=== PATIENT | male | born 1935 | race Caucasian/White ===

== ENCOUNTER 2017-04-18 16:21 | Inpatient (IN) | payer MEDICARE, OTHER ==
[~2017-04-18] VITALS: Ht 182.9 cm; Wt 60.8 kg
[~2017-04-18 16:21] MED LIST: CHLOTAB5 PO; DIOV320T PO; EYEDRO EACH EYE; LOVA20TA PO; OCUVTAB4 PO; PYRI100T4 PO; TAB-TAB PO; VITA10002 PO
[2017-04-18 16:46] VITALS: BP 169/88; PULSE 71; RESP 16; TEMP 98.1; O2SAT 96
--- NOTE | 2017-04-18 18:02 | PD ---
HPI Chief Complaint: Psychiatric Symptoms Time Seen by Provider: 17:55 Travel History International Travel<30 days: No Contact w/Intl Traveler<30days: No Traveled to known affect area: No History of Present Illness HPI 81-year-old male that presents to the ED for evaluation of dementia. Patient was Rust acted by his PCP Dr Carrera secondary to moderate to severe dementia. He apparently has been driving and he is not supposed to. He drove by himself to the doctors office and appeared to be more confused than normal. He apparently has been driving in his neighborhood. He does not appear to be aware of this. History is difficult secondary to dementia and patient being poor historian. No pain. No medical complains. PFSH Past Medical History Cancer: No Cardiovascular Problems: Yes (CHF) Diabetes: No Endocrine: No Genitourinary: No Hepatitis: No Hiatal Hernia: No Immune Disorder: No Musculoskeletal: No Neurologic: No Psychiatric: Yes (CLAUSTROPHOBIC IN MRI) Reproductive: No Respiratory: No Thyroid Disease: Yes (THYROID NODULES) Past Surgical History Abdominal Surgery: Yes (APPENDECTOMY) AICD: No Joint Replacement: No Pacemaker: No Social History Tobacco Use: No Substance Use: No Allergies-Medications (Allergen,Severity, Reaction): Coded Allergies: No Known Allergies (Unverified , 04/06/15) Reported Meds & Prescriptions Reported Meds & Active Scripts Active Reported Eye Drops Relief (Tetrahydrozoline W/ Zinc Sulfa) Relief Cal 1 Drop EACH EYE BID [place] Plus Cold (Chlorpheniramine-Phenylephrine) Pls Cold Tab 1 Tab PO DAILY Vitamin B12 (Cyanocobalamin) 1,000 Mcg Tab 2,000 Mcg PO DAILY Vitamin B6 (Pyridoxine HCl) 100 Mg Tab 100 Mg PO DAILY Preservision Areds (Multivitamins/Minerals) Areds Tab 2 Tab PO DAILY Multivitamin (Multivitamins) 1 Tab Tab 1 Tab PO DAILY Lovastatin 20 Mg Tab 20 Mg PO DAILY Diovan 320 mg (Valsartan) 320 Mg Tab 320 Mg PO DAILY Review of Systems ROS Limitations: Poor Historian Except as stated in HPI: all other systems reviewed are Neg Physical Exam Exam Limitations: Poor Historian Narrative GENERAL: SKIN: Warm and dry. HEAD: Atraumatic. Normocephalic. EYES: Pupils equal and round. No scleral icterus. No injection or drainage. ENT: No nasal bleeding or discharge. Mucous membranes pink and moist. Tongue is midline, no uvula deviation. NECK: Trachea midline. No JVD. CARDIOVASCULAR: Regular rate and rhythm. RESPIRATORY: No accessory muscle use. Clear to auscultation. Breath sounds equal bilaterally. GASTROINTESTINAL: Abdomen soft, non-tender, nondistended. Hepatic and splenic margins not palpable. MUSCULOSKELETAL: Extremities without clubbing, cyanosis, or edema. No obvious deformities. full ROM of the upper and lower extremities. 2+ pulses bilaterally. NEUROLOGICAL: Awake and alert and oriented to person and place. No obvious cranial nerve deficits. Motor grossly within normal limits. Five out of 5 muscle strength in the arms and legs. Normal speech. PSYCHIATRIC: demented mood and affect; insight and judgment normal. Data Data Last Documented VS Vital Signs Date Time Temp Pulse Resp B/P Pulse Ox O2 Delivery O2 Flow Rate FiO2 04/18/17 16:46 98.1 71 16 169/88 96 Orders Complete Blood Count With Diff (04/18/17 17:18) Comprehensive Metabolic Panel (04/18/17 17:18) Urinalysis - C+S If Indicated (04/18/17 17:18) Psych Screen (04/18/17 17:18) Drug Screen, Random Urine (04/18/17 17:18) Alcohol (Ethanol) (04/18/17 17:18) Salicylates (Aspirin) (04/18/17 17:18) Tylenol (Acetaminophen) (04/18/17 17:18) Labs Laboratory Tests Test 04/18/17 04/18/17 17:35 17:46 White Blood Count 5.0 TH/MM3 Red Blood Count 4.93 MIL/MM3 Hemoglobin 15.5 GM/DL Hematocrit 47.5 % Mean Corpuscular Volume 96.4 FL Mean Corpuscular Hemoglobin 31.4 PG Mean Corpuscular Hemoglobin 32.6 % Concent Red Cell Distribution Width 13.3 % Platelet Count 167 TH/MM3 Mean Platelet Volume 9.9 FL Neutrophils (%) (Auto) 56.9 % Lymphocytes (%) (Auto) 28.9 % Monocytes (%) (Auto) 10.8 % Eosinophils (%) (Auto) 2.8 % Basophils (%) (Auto) 0.6 % Neutrophils # (Auto) 2.8 TH/MM3 Lymphocytes # (Auto) 1.4 TH/MM3 Monocytes # (Auto) 0.5 TH/MM3 Eosinophils # (Auto) 0.1 TH/MM3 Basophils # (Auto) 0.0 TH/MM3 CBC Comment DIFF FINAL Differential Comment Sodium Level 141 MEQ/L Potassium Level 4.1 MEQ/L Chloride Level 104 MEQ/L Carbon Dioxide Level 28.7 MEQ/L Anion Gap 8 MEQ/L Blood Urea Nitrogen 21 MG/DL Creatinine 1.05 MG/DL Estimat Glomerular Filtration 67 ML/MIN Rate Random Glucose 86 MG/DL Calcium Level 8.9 MG/DL Total Bilirubin 0.5 MG/DL Aspartate Amino Transf 17 U/L (AST/SGOT) Alanine Aminotransferase 22 U/L (ALT/SGPT) Alkaline Phosphatase 78 U/L Total Protein 7.3 GM/DL Albumin 4.0 GM/DL Salicylates Level LESS THAN 1.7 MG/DL Acetaminophen Level LESS THAN 2.0 MCG/ML Ethyl Alcohol Level LESS THAN 3 MG/DL Urine Color YELLOW Urine Turbidity CLEAR Urine pH 5.5 Urine Specific [place] 1.020 Urine Protein TRACE mg/dL Urine Glucose (UA) NEG mg/dL Urine Ketones 10 mg/dL Urine Occult Blood NEG Urine Nitrite NEG Urine Bilirubin NEG Urine Urobilinogen LESS THAN 2.0 MG/DL Urine Leukocyte Esterase NEG Urine Hyaline Casts 1 /lpf Urine Mucus FEW /lpf Microscopic Urinalysis Comment CULT NOT INDICATED Urine Opiates Screen NEG Urine Barbiturates Screen NEG Urine Amphetamines Screen NEG Urine Benzodiazepines Screen NEG Urine Cocaine Screen NEG Urine Cannabinoids Screen NEG MDM Medical Decision Making Medical Screen Exam Complete: Yes Emergency Medical Condition: Yes Medical Record Reviewed: Yes Interpretation(s) CBC & BMP Diagram 04/18/17 17:35 UA negative LFTS WNL tox negative Differential Diagnosis Depression versus suicidal ideation versus anxiety versus adjustment disorder versus mood disorder versus bipolar disorder versus schizophrenia versus paranoid disorder versus psychosis versus substance abuse versus alcohol abuse versus alcohol induced psychosis versus homicidality addition versus cutting versus personality disorder vs dementia Narrative Course 81 yo male here for BA. patient was properly examined and found to have severe dementia. history is limited. Here for psych eval. Labs ordered. patient will be medically cleared. Ok to be seen by psych. Mental health screening was discussed with the patient. Diagnosis Primary Impression: Dementia Qualified Code: G30.1 - Late onset Alzheimer's disease without behavioral disturbance Abhijit Morejon Apr 18, 2017 18:02
[2017-04-18 18:14] LABS: BLOOD, URINE NEG (NEG); COMMENT (UR) CULT NOT INDICATED; CULTURE IF INDICATED CULT NOT INDICATED; GLUCOSE,URINE NEG (NEG); HYALINE CAST, URINE 1 /lpf (RARE); KETONE, URINE 10 mg/dL (NEG); MUCUS URINE FEW /lpf (OCC); NITRITE,URINE NEG (NEG); PH, URINE 5.5 (5.0-8.5); URINE COLOR YELLOW (YELLW/STRAW)
[2017-04-18 18:18] LABS: AMPHETAMINE, URINE NEG (NEG); BARBITURATES, URINE NEG (NEG); COCAINE, URINE NEG (NEG)
[2017-04-18 18:26] LABS: AUTOMATED NEUTROPHIL # 2.8 TH/MM3 (1.8-7.7); BASOPHIL % 0.6 % (0.0-2.0); EOSINOPHIL # 0.1 TH/MM3 (0-0.4); EOSINOPHIL % 2.8 % (0.0-4.0); HEMATOCRIT 47.5 % (39.0-51.0); HEMO FLAGS DIFF FINAL; LYMPH % 28.9 % (9.0-44.0); LYMPHOCYTE # 1.4 TH/MM3 (1.0-4.8); MEAN CELL VOLUME 96.4 FL (80.0-100.0); MEAN CORPUSCULAR HEMOGLOBIN 31.4 PG (27.0-34.0); MEAN CORPUSCULAR HGB CONC 32.6 % (32.0-36.0); MONO % 10.8 % (0.0-8.0); NEUT % 56.9 % (16.0-70.0); PLATELET COUNT 167 TH/MM3 (150-450); RED BLOOD COUNT 4.93 MIL/MM3 (4.50-5.90); RED CELL DISTRIBUTION WIDTH 13.3 % (11.6-17.2)
[2017-04-18 18:29] LABS: ANION GAP 8 MEQ/L (5-15); AST (GOT) 17 U/L (15-37); BICARBONATE 28.7 MEQ/L (21.0-32.0); BLOOD UREA NITROGEN 21 MG/DL (7-18); CHLORIDE 104 MEQ/L (98-107); GLOMERULAR FILTRATION RATE 67 ML/MIN (>89); POTASSIUM 4.1 MEQ/L (3.5-5.1); SODIUM (NA) 141 MEQ/L (136-145)
[2017-04-18 18:30] LABS: ALT (GPT) 22 U/L (12-78)
[2017-04-18 18:32] LABS: ACETAMINOPHEN LESS THAN 2.0 MCG/ML (10.0-30.0); ALKALINE PHOSPHATASE 78 U/L (45-117); TOTAL BILIRUBIN ADULT 0.5 MG/DL (0.2-1.0)
[2017-04-19 00:45] VITALS: BP 152/83; PULSE 69; RESP 16; TEMP 98.2; O2SAT 96
[2017-04-19 06:16] VITALS: BP 155/77; PULSE 74; RESP 14; TEMP 97.7; O2SAT 97
[2017-04-19 08:00] VITALS: BP 165/84; PULSE 81; RESP 18; TEMP 97.9; O2SAT 97
[2017-04-19 10:37] VITALS: BP 169/87; PULSE 91; RESP 18; O2SAT 99
[2017-04-19 14:22] VITALS: BP 137/83; PULSE 79; RESP 18; TEMP 97.6; O2SAT 93
[2017-04-19] MEDS ORDERED: TEMAZEPAM 15 MG CAP PO PRN (18:30)
[2017-04-19 18:36] VITALS: BP 168/92; PULSE 79; RESP 16; TEMP 96.6; O2SAT 98
[2017-04-19] MEDS ORDERED: ALUMINUM/MAGNESIUM/SIMETH 30 ML CUP PO PRN (19:15)
[2017-04-19] MEDS ORDERED: ACETAMINOPHEN 325 MG TAB PO PRN (19:15)
[2017-04-19] MEDS ORDERED: MAGNESIUM HYDROXIDE SUSP 30 ML CUP PO PRN (19:15)
[2017-04-19] MEDS ORDERED: LORazepam 0.5 MG TAB age > 65 yrs PO PRN (19:15)
[2017-04-19] MEDS ORDERED: LORazepam 2 MG/ML VIAL - age > 65 yrs IM PRN (19:15)
[2017-04-19 19:33] LABS: FREE T4 1.67 NG/DL (0.76-1.46)
[2017-04-20 09:34] LABS: ANION GAP 11 MEQ/L (5-15); BICARBONATE 27.8 MEQ/L (21.0-32.0); BLOOD UREA NITROGEN 21 MG/DL (7-18); CHLORIDE 101 MEQ/L (98-107); GLOMERULAR FILTRATION RATE 64 ML/MIN (>89); POTASSIUM 3.6 MEQ/L (3.5-5.1); SODIUM (NA) 140 MEQ/L (136-145)
--- NOTE | 2017-04-20 10:04 | RADRPT ---
EXAM DATE/TIME: 04/20/2017 09:46 [place] COMPARISON: No previous studies available for comparison. INDICATIONS : Dementia. Altered mental status. RADIATION DOSE: 33.05 CTDIvol (mGy) MEDICAL HISTORY : Dementia. Cardiovascular disease Psych. SURGICAL HISTORY : None. ENCOUNTER: Initial ACUITY: 1 day PAIN SCALE: 0/10 LOCATION: Bilateral cranial TECHNIQUE: Multiple contiguous axial images were obtained of the head. Using automated exposure control and adj ustment of the mA and/or kV according to patient size, radiation dose was kept as low as reasonably a chievable to obtain optimal diagnostic quality images. FINDINGS: There is an old infarct in the right parieto-occipital region. Left hemisphere is unremarkable. Pos terior fossa appears normal. There is mild central and cortical atrophy. CONCLUSION: 1. Atrophy. 2. 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 Negative for an acute process. Aguilar Scott MD FACR on April 20, 2017 at 9:55 Board Certified Radiologist. This report was verified electronically.
[2017-04-20 10:09] LABS: HDL CHOLESTEROL 58.1 MG/DL (40.0-60.0); LDL CHOLESTEROL 120 MG/DL (0-99)
[2017-04-20] MEDS ORDERED: MAGNESIUM HYDROXIDE SUSP 30 ML CUP PO PRN (13:00)
[2017-04-20] MEDS ORDERED: LORazepam 1 MG TAB PO PRN (13:00)
[2017-04-20] MEDS ORDERED: LORazepam 0.5 MG TAB PO PRN (13:00)
[2017-04-20] MEDS ORDERED: ALUMINUM/MAGNESIUM/SIMETH 30 ML CUP PO PRN (13:00)
[2017-04-20] MEDS ORDERED: LORazepam 2 MG/ML VIAL IM PRN ×2 (13:00)
[2017-04-20] MEDS ORDERED: ACETAMINOPHEN 325 MG TAB PO PRN (13:00)
[2017-04-20 20:00] VITALS: BP 139/72; PULSE 89; RESP 18; TEMP 97.1
[2017-04-21 05:53] VITALS: BP 154/78; PULSE 62; RESP 18; TEMP 98.1; O2SAT 96
[2017-04-21] MEDS ORDERED: NICOTINE 21 MG/24 HR PATCH T-DERMAL SCH (09:00)
--- NOTE | 2017-04-21 11:26 | MH ---
cc: TERRANCE EM M.D. DATE OF ADMISSION: 04/19/2017 HISTORY OF PRESENT ILLNESS: This 81-year-old white male was brought to the emergency room of this hospital under the Rust Act initiated his primary care physician Dr. Michael Diaz. It was reported that he has been increasingly getting "confused" and has been displaying erratic behavior i.e., caused damage to the property. He was instructed not to drive but he did not follow through with this recommendation. In the emergency room he was initially evaluated by the emergency room physician and was considered medically stable. No acute medical issues were identified. He was also evaluated by the psychiatric screener and the case was discussed with me. During this evaluation he reportedly was "confused" and unable to provide much information though was very pleasant and cooperative. The psychiatric screener attempted to contact any family members or friends but was unsuccessful. It was felt he needed to be hospitalized for further assessment treatment. It was reported by the psychiatric screener that he believed that his neighbors were all "jerks" and that one of them was trying to steal things from him. He disputed the information given on the Rust Act by his primary care physician. Prior to the evaluation, the case was discussed with the nursing staff on the unit who indicated that since admission he has been very exit seeking, confused, but overall pleasant and cooperative. He has not exhibited any aggressive or self-destructive behavior nor has he made any threats of harm to self or others. At the time of this evaluation, he was pleasant and cooperative. Questions had to repeated to him because of his hearing impairment. He knew he was in the hospital but could not give the name even though he had earlier indicated that he has been living in this area for over 20 years. He was very vague about his understanding of the reason for this hospitalization, "I do not know why I am here. My doctor said not to drive. I guess it is because of my neighbors. They damaged my license plate. There is one particular neighbor who has been stealing things." When attempting to clarify if he damaged his garage door, he initiated denied it but then responded, "I guess they had to replace the garage door". He acknowledged being "confused at times". He also mentioned that lately he has been feeling "kind of down" which he attributed to "problems" with his neighbors. When specifically inquired if he has been experiencing any crying episodes, he denied. He denied any disturbance in his sleep or appetite. He denied entertaining any suicidal thoughts or any previous suicide attempts. He also denied any history of violence. On further direct questioning, he denied experiencing auditory or visual hallucinations. He denied any alcohol or drug abuse. On further direct questioning, he did not give any history suggestive of bipolar affective disorder. PAST PSYCHIATRIC HISTORY: He denied any previous psychiatric intervention. Specifically he denied any history of previous psychiatric hospitalization. PAST MEDICAL HISTORY: He acknowledged an unspecified thyroid problem which he could not explain. He denied ever being on any thyroid supplement. He denied any cardiac issues, history of head injury or seizures. He denied any drug allergies. It should be mentioned that in the ER physician's notes indicate that he has history of congestive heart failure and has had an appendectomy. Reported medications have included primarily vitamins, lovastatin, Diovan. Whether not these are active medications is not clear. FAMILY HISTORY: His parents are . He could not give a clear history of his siblings, i.e., when inquired about this he responded "I guess I might have one sister, maybe I had two, I guess one is living." He denied any knowledge of psychiatric illness or substance abuse in his family. PERSONAL AND SOCIAL HISTORY He grew up in [place] and after finishing high school obtained degree in [employer] from [employer]. He served in the [employer] for 14 years and after discharge he worked in the [employer] industry. He initially lived in [place] but moved to [place] about "20 to 30 years ago" and has been living in a house in [place]. When inquired about his marital status, he responded, "I guess I was twice or maybe I was once". He stated that he was by "those women". Again when inquired about any children, he was not clear, "I don't think I have any children, or maybe I do." He denied any alcohol or drug abuse. He could not give any clear account of his monthly income and expenses. He denied any history of violence or involvement with the law. CLINICAL OBSERVATIONS AND MENTAL STATUS EXAMINATION: At the time of this evaluation Mr. Kaufman presented as a thinly built casually dressed reasonably well-groomed white male who looked his stated age. He was overall pleasant and polite with this interviewer. Questions had to be repeated to him because of his hearing impairment. His responses to questions were generally vague and at times contradictory. No overt anger or hostility was noticed. No bizarre behavioral mannerisms were noticed. His speech was coherent. His affect was somewhat blunted appropriate. Subjectively described his mood as "maybe little down." Thought processes did not reveal any looseness of association or flight of ideas. No naren delusions were noticed. However, his description of his neighbor does indicate some underlying paranoia. No auditory or visual hallucinations were noticed or reported. He denied active suicidal or homicidal ideations or intent at this time. He denied any previous suicide attempts. Cognitive functions: He was alert, oriented to time, place, person and situation. He gave the date as "April or ." Memory: Immediate: He could do 4 digits forward and 3 digits backward. Recent: He could recall only one out of three objects after ten minutes. Remote: He could recall presidents up to President Obama only with difficulty. His attention and concentration was impaired. He could not do serial sevens at all. He was somewhat concrete and he his fund of knowledge was also somewhat limited considering that he is a college graduate. He knew the [place] of [place] as "[place]" but could not tell the capitol of [place]. He was also somewhat concrete on interpretation of proverbs; for example, when asked what does it mean by the saying do not count your chickens before they daley, he responded, "you need to have time for the eatable animals to come out". His insight and judgment was felt to be fair. REVIEW OF SYSTEMS: He denied any diarrhea, vomiting or abdominal pain. He denied any dysuria, hematuria or frequency. He denied any chest pain, palpitations or dyspnea on exertion. He denied muscle weakness, numbness or any history of seizures. PHYSICAL EXAMINATION: Physical examination was not done as this has already been done in the emergency room and no acute medical issues were identified. No gross neurological deficits were noticed at this time. 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 Depressive disorder, unspecified. AXIS II: No diagnosis. AXIS III: No diagnosis. AXIS IV: Severity of psychosocial stressors moderate i.e. cognitive impairment, limited support system. AXIS V: Current GAF score 40. FORMULATION AND TREATMENT PLAN: Based on this evaluation and the background information available to me at this time Mr. Kaufman is exhibiting significant cognitive deficits. As such, a basic dementia workup was ordered. CT scan of the brain shows cortical atrophy and old infarct in the right parietooccipital region negative for any acute process. Other lab workup is also essentially unremarkable. Specifically his vitamin B12, folate levels vitamin D levels and T4 is normal. TSH is low. Urine drug screen negative. In addition to the cognitive deficits, he also seems to be experiencing a mild degree of underlying depression. This will be monitored and if felt necessary, consideration will be given to trial of an antidepressant. In the meantime, he will be started on a small dose of Ativan on a p.r.n. basis. Involuntary admission will be initiated. Music Educator will be asked to assist in discharge planning and placement. He will participate in various unit activities i.e. occupational therapy, recreational therapy, group therapy. His identified problems are: 1. Cognitive deficits. 2. Current psychosocial stressors. His assets are: 1. He is verbal. 2. Good physical health. His estimated length of stay is five to seven days. MD LINDA Carlos/HANSEL /1:47 PM /11:23 AM
--- NOTE | 2017-04-21 13:34 | PD.CONS ---
Provisional Diagnosis Admission Date Apr 19, 2017 at 17:45 [place] I. Dementia with behavioral disturbances History of Present Illness Service Psychiatry Consult Requested By Dr. nesbitt Reason for Consult Second opinion Rust act Primary Care Physician Unknown HPI Shouldn't is an 81-year-old white male admitted to Dr. nesbitt service. initial psych eval reviewed and agreed with Patient seen by me with nurse Tanvi. Patient is a visibly confused disoriented white male appears stated age diffusely confused to place time and situation. Unable to give any significant history related to his admission. Dr. nesbitt #first opinion petition supporting [employer] act. I agree. Patient meets criteria for involuntary psychiatric hospitalization under the Rust act. Thus I will cosign second opinion petition supporting [employer] Past Family Social History Coded Allergies: No Known Allergies (Unverified , 04/19/17) Reported Medications Tetrahydrozoline W/ Zinc Sulfa (Eye Drops Relief)Relief Dro1 Drop EACH EYE BID 04/04/15 Chlorpheniramine-Phenylephrine (Alice-[place] Plus Cold)Pls Cold Tab1 Tab PO DAILY 04/04/15 Cyanocobalamin (Vitamin B12)1,000 Mcg Tab2,000 Mcg PO DAILY 04/04/15 Pyridoxine HCl 100 Mg [id number] Mg PO DAILY 04/04/15 Multiple Vitamins W/ Minerals (Preservision Areds)Areds Tab2 Tab PO DAILY 04/04/15 Multiple Vitamin (Multivitamin)1 Tab Tab1 Tab PO DAILY 04/04/15 Lovastatin 20 Mg Tab20 Mg PO DAILY 04/04/15 Valsartan 320 mg (Diovan 320 mg)320 Mg [id number] Mg PO DAILY 04/04/15 Current Medications Medications (Trade) Dose Ordered Sig/María Route Start Time Stop Time Status Last Admin (Restoril) 15 mg HS PRN PO 04/19/17 18:30 Hold (Ativan) 0.5 mg Q12H PRN PO 04/20/17 13:00 Hold (Ativan Inj) 0.5 mg Q12H PRN IM 04/20/17 13:00 Hold (Tylenol) 650 mg Q4H PRN PO 04/20/17 13:00 (Milk Of Magnesia Liq) 30 ml DAILY PRN PO 04/20/17 13:00 (Mag-Al Plus Susp Liq) 30 ml Q6H PRN PO 04/20/17 13:00 Physical Exam Vital Signs Vital Signs Date Time Temp Pulse Resp B/P Pulse Ox O2 Delivery O2 Flow Rate FiO2 04/21/17 05:53 98.1 62 18 154/78 96 04/19/17 14:22 Room Air I/O 04/20/17 04/20/17 04/21/17 08:00 16:00 00:00 Intake Total 1440 ml 600 ml Balance 1440 ml 600 ml Mental Status Examination Alert diffusely disoriented white male appears stated age calm and slightly anxious Appearance Somewhat scruffy Speech: Hesitant, Circumstantial, Tangential Orientation: Person (vaguely) Memory: Impaired (describe) Thought Process: Loose Association Thought Content: Other (disorganized) Language Poor Fund of Knowledge Poor Hallucination Type: None Attention and Concentration: Easily Distracted Suicidal Ideation: No Previous Suicide Attempts: No Homicidal Ideation: No Previous Homicide Attempts: No Insight: Poor Judgment: Poor Affect: Other (slight decreased range of motion intensity) Mood: Euthymic (to somewhat restricted and mildly irritable) Motor Activity: Abnormal gait-specify (somewhat unsteady on his feet) Assessment & Plan Problem List: (1) Dementia ICD Code: F03.90 Assessment & Plan Estimated LOS: days Problem Qualifiers (1) Dementia: Qualified Code: G30.1 - Late onset Alzheimer's disease without behavioral disturbance Lucien Dominguez MD Apr 21, 2017 13:34
[2017-04-21 16:07] LABS: HEMOGLOBIN A1b 0.9 %; HEMOGLOBIN Ao 85.2 %; HEMOGLOBIN F 0.8 %; HEMOGLOBIN LA1C 1.9 %; HEMOGLOBIN P3 4.1 %
[2017-04-21 18:09] VITALS: BP 115/81; PULSE 76; RESP 17; TEMP 97.9
[2017-04-21] MEDS ORDERED: REMOVE OLD NICODERM (NICOTINE) PATCH T-DERMAL SCH (21:00)
[2017-04-22 06:11] VITALS: BP 151/73; PULSE 56; RESP 17; TEMP 97.8; O2SAT 96
[2017-04-22 17:32] VITALS: BP 164/83; PULSE 72; RESP 18; TEMP 98; O2SAT 97
[2017-04-23 05:14] VITALS: BP 166/81; PULSE 80; RESP 17; TEMP 98.4; O2SAT 97
--- NOTE | 2017-04-23 14:30 | PD.TTN ---
Present for Treatment Team Treatment Team Staff: Provider (Dr. Cartagena), Nurse (Orville), Psych Therapist ( Dora Pablo), Other Clinician (rec. rama Armstrong), Ancillary Staff Patient Problems 1. Discharge planning 2. Medication compliance 3. Knowledge deficit 4. Lack of coping skills Progress Toward Goals Provider Input: Dr. Cartagena inquired regarding patient's income and ability to care for himself at home. Dr. Cartagena discussed with the patient that Dr. Diaz believes the patient is unfit to remain home alone. Patient denied any deficits related to his self care and reports he continues to drive with out any issues. Nurse Input: Orville reported the patient has remained calm, pleasant, cooperative, and compliant with medications. Psych Therapist Input: Counselor reported having spoken to patient's neighbor, Mr. Colton Kenny, who informed this counselor that he has lived across the street from this patient for 28 years. Counselor reported the patient's family would like to have the patient discharged home with 24/7 home health care. Patient reported he has $350,000.00 in the bank and is oopen to returning home with 24/7 care. Other Clinican Input: rec. Patti therapy, reported the patient is unable to tolerate groups. Documentation Scribe: HIRO Mora Date Resolved: Apr 23, 2017 Dora Pablo [facility] Apr 23, 2017 14:30
--- NOTE | 2017-04-23 16:16 | PD.CONS ---
HPI Service [facility] Hospitalists Consult Requested By Primary Care Physician Unknown Diagnoses: History of Present Illness Pt is 81 yo howard acted and sent to ED by pcp. He has dementia and was still driving and apparently danger to himself and others. Has been in psych unit and question raised if his hyperthyroidism might be contributing to his cognitive decline. On review of outpatient records from cp, pcp, endocrine...it would appear that his goiter has been biopsied in past and negative for malignancy. Also his tsh has been steadily trending down further each year and free t4 higher. he dose have hx pafib. Currently pt ambulatory and cooperative but he is confused and wants to talk about his time in [place] and the [place]. Review of Systems Other agitation Past Family Social History Past Medical History dementia right parietooccipital cva depression htn goiter. s/p bx. has been nontoxic and follows with endocrine. tsh has been trending down over the yrs steadily and free t4 rising. hyperthyroid. hyperlipidemia diastolic chf appe p. afib per records right cataract Reported Medications Reported Meds & Active Scripts Active Reported Eye Drops Relief (Tetrahydrozoline W/ Zinc Sulfa) Relief Cal 1 Drop EACH EYE BID [place] Plus Cold (Chlorpheniramine-Phenylephrine) Pls Cold Tab 1 Tab PO DAILY Vitamin B12 (Cyanocobalamin) 1,000 Mcg Tab 2,000 Mcg PO DAILY Pyridoxine HCl 100 Mg Tab 100 Mg PO DAILY Preservision Areds (Multivitamins/Minerals) Areds Tab 2 Tab PO DAILY Multivitamin (Multivitamins) 1 Tab Tab 1 Tab PO DAILY Lovastatin 20 Mg Tab 20 Mg PO DAILY Diovan 320 mg (Valsartan) 320 Mg Tab 320 Mg PO DAILY Allergies: Coded Allergies: No Known Allergies (Unverified , 04/19/17) Family History nc Social History no etoh remote tob. Physical Exam Vital Signs pleasant ambulates cooperative heart irreg/ectopic beat abd s/nt ext no edema neck palpable midline and left side thyroid masses Vital Signs Date Time Temp Pulse Resp B/P Pulse Ox O2 Delivery O2 Flow Rate FiO2 04/23/17 05:14 98.4 80 17 166/81 97 04/22/17 17:32 98.0 72 18 164/83 97 Result Diagram: 04/20/17 0816 Assessment and Plan Problem List: (1) Dementia Plan: Pt with dementia and agitation diagnosis. He does have steady drop in TSH and rise in free t4. His hyperthyroidism has always been nontoxic in the past per outpt records. I feel it's worth trying a dose of methimazole and follow mental status and TFT"s. . we will follow along in hospital and notify pcp if we d/c him home on this medication. . also we started low dose lisinipril for his htn which has been elevated. (2) Hyperthyroidism Status: Acute Plan: see above (3) HTN (hypertension) Status: Acute Plan: see above (4) Goiter Status: Chronic Plan: see above (5) Paroxysmal a-fib Status: Chronic (6) Diastolic CHF Status: Chronic Plan: compensated (7) Hyperlipidemia Status: Chronic Problem Qualifiers (1) Dementia: Qualified Code: G30.1 - Late onset Alzheimer's disease without behavioral disturbance Joon Jones MD Apr 23, 2017 16:16
--- NOTE | 2017-04-23 17:18 | MH ---
cc: TERRANCE EM M.D. DATE OF ADMISSION 04/19/2017 DATE OF SERVICE 04/23/2017 Treatment team meeting attended by the patient. Reviewed records from Dr. Michael Diaz's office. A copy of this is in the chart. The purpose of treatment team meeting was to review the patient's condition in the program and to discuss discharge plans. It was reported by the staff that he has been compliant with treatment plan and has not exhibited any aggressive or self-destructive behavior. He has been sleeping well and his appetite is beginning to improve. He however remains "confused." The social service worker Dora reported that she contacted his neighbor Colton who has been assisting the patient for past 20 years. According to him he has been increasingly getting "confused" i.e. driving erratically at times, damaging property, etc. He has been assisting the patient in taking care of his financial matters. He will be attending the court hearing tomorrow and is willing to serve as guardian advocate. In the meeting Mr. Kaufman looked somewhat irritable and guarded. He verbalized negative feelings about this particular neighbor and his . He stated his was too intrusive and would visit him for several hours. He was not supportive of him having his funds and instead indicated that his bank could handle his funds. He also opposed placement in any assisted living facility or [facility]. He preferred returning home. It was also reported by the social service worker that she contacted the sister who also supports the patient returning to home as he is financially well off and can be managed with [id number] supervision. In the meeting Mr. Kaufman was overall receptive but somewhat guarded. He continues to deny all the information / circumstances leading to this hospitalization. He stated that his appetite was picking up. He denied entertaining suicidal or homicidal ideations. I reviewed the records from Dr. Michael Diaz's office. His note dated 04/18/2017 indicates that the patient showed up in his office without an appointment. He has no family or next of kin but has a sister in [facility] who he is estranged from. According to the social service worker Dora she is in poor health and is in no way able to take care of the patient. Dr. Diaz felt that during this visit he was adamant that he was okay and he was able to drive his car. As such he initiated the Rust ACT. MEDICATIONS His current medications are: 1. Aspirin 81 milligrams daily. 2. Aricept 5 milligrams daily. 3. Fluticasone 50 micrograms / ____ nasal suspension. 4. Lovastatin 20 milligrams daily. 5. Lutein 6 milligrams daily. 6. Nitrostat 0.4 milligrams sublingual as needed for chest pain. 7. Risperdal 0.5 milligrams daily. 8. Valsartan 320 milligrams daily. 9. Vitamin B12. 10. Vitamin B6. ALLERGIES NO DRUG ALLERGIES. LABORATORY DATA The lab workup including CBC with differential, CMP was essentially unremarkable except serum creatinine elevated at 1.28. BUN normal. CBC with differential unremarkable. Urinalysis showed 1+ protein, 1+ ketones. PAST MEDICAL HISTORY Is as follows: 1. He has a history of macular degeneration. 2. Allergic rhinitis. 3. Aortic ectasia. 4. Arteriosclerosis of the aorta. 5. Carpal tunnel syndrome. 6. Cholelithiasis without obstruction. 7. Chronic diastolic congestive heart failure. 8. Chronic kidney disease stage III. 9. Hypertension. 10. Hyperlipidemia. 11. Hyperthyroidism. 12. Non toxic multinodular goiter. 13. Paroxysmal atrial fibrillation. 14. Scoliosis. 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 PAST SURGICAL HISTORY He has a history of 1. Appendectomy. 2. Biopsy of thyroid. 3. Needle biopsy of the prostate. 4. Surgery of salivary gland. Note is made that he over the past two weeks he has not lost interest in pleasurable activities, feeling depressed or hopeless. MD LINDA Carlos/ROHIT /2:48 PM /4:24 PM
[2017-04-23 18:00] VITALS: BP 133/72; PULSE 79; RESP 17; TEMP 97.6; O2SAT 98
[2017-04-24 05:50] VITALS: BP 138/67; PULSE 63; RESP 16; TEMP 98; O2SAT 98
[2017-04-24] MEDS ORDERED: ESCITALOPRAM OXALATE 10 MG TAB PO SCH (09:00)
[2017-04-24] MEDS: LISINOPRIL 5 MG TAB PO SCH (09:01)
--- NOTE | 2017-04-24 14:59 | EKG ---
Date Performed: 04/23/2017 Time Performed: 19:13:25 PTAGE: 81 years EKG: Sinus rhythm VOLTAGE CRITERIA FOR LVH ABNORMAL ECG NO PREVIOUS TRACING DOCTOR: Meet Casas Interpretating Date/Time 04/24/2017 14:56:32
[2017-04-24] MEDS: METHIMAZOLE 5 MG TAB PO SCH ×2 (15:29→22:00)
[2017-04-24 18:06] VITALS: BP 124/67; PULSE 85; RESP 17; TEMP 97.7; O2SAT 97
[2017-04-25 05:41] VITALS: BP 117/56; PULSE 75; RESP 16; TEMP 98.8; O2SAT 95
[2017-04-25] MEDS: METHIMAZOLE 5 MG TAB PO SCH ×3 (06:13→22:43)
[2017-04-25] MEDS: LISINOPRIL 5 MG TAB PO SCH (10:52)
[2017-04-25 18:09] VITALS: BP 135/78; PULSE 75; RESP 18; TEMP 98.9; O2SAT 97
[2017-04-25] MEDS: HALOPERIDOL 0.5 MG TAB PO SCH (22:43)
[2017-04-26 05:57] VITALS: BP 130/66; PULSE 67; RESP 17; TEMP 97.9; O2SAT 99
[2017-04-26] MEDS: METHIMAZOLE 5 MG TAB PO SCH ×3 (06:26→21:22)
[2017-04-26] MEDS: LISINOPRIL 5 MG TAB PO SCH (08:19)
[2017-04-26] MEDS: HALOPERIDOL 0.5 MG TAB PO SCH ×2 (08:19→21:22)
[2017-04-26] MEDS: ESCITALOPRAM OXALATE 10 MG TAB PO SCH (08:19)
[2017-04-26 18:19] VITALS: BP 106/81; PULSE 63; RESP 16; TEMP 97.5; O2SAT 99
[2017-04-27] MEDS: METHIMAZOLE 5 MG TAB PO SCH ×3 (05:59→20:45)
[2017-04-27 06:36] VITALS: BP 140/57; PULSE 76; RESP 16; TEMP 98; O2SAT 93
[2017-04-27 06:45] VITALS: BP 138/72; PULSE 68; RESP 15; TEMP 99.1; O2SAT 96
[2017-04-27] MEDS: HALOPERIDOL 0.5 MG TAB PO SCH ×2 (08:04→20:45)
[2017-04-27] MEDS: LISINOPRIL 5 MG TAB PO SCH (08:04)
[2017-04-27] MEDS: ESCITALOPRAM OXALATE 10 MG TAB PO SCH (08:04)
[2017-04-27 18:00] VITALS: BP 143/64; PULSE 58; RESP 16; TEMP 97.3; O2SAT 98
[2017-04-28] MEDS: METHIMAZOLE 5 MG TAB PO SCH ×3 (05:49→20:54)
[2017-04-28 06:18] VITALS: BP 117/54; PULSE 61; RESP 17; TEMP 98.9; O2SAT 98
[2017-04-28] MEDS: HALOPERIDOL 0.5 MG TAB PO SCH ×2 (08:54→20:54)
[2017-04-28] MEDS: ESCITALOPRAM OXALATE 10 MG TAB PO SCH (08:54)
[2017-04-28] MEDS: LISINOPRIL 5 MG TAB PO SCH (08:54)
[2017-04-28 19:00] VITALS: BP 117/56; PULSE 66; RESP 16; TEMP 98.9; O2SAT 99
[2017-04-29 06:00] VITALS: BP 122/58; PULSE 63; RESP 18; TEMP 99
[2017-04-29] MEDS: METHIMAZOLE 5 MG TAB PO SCH ×2 (09:30→14:39)
[2017-04-29] MEDS: ESCITALOPRAM OXALATE 10 MG TAB PO SCH (09:30)
[2017-04-29] MEDS: HALOPERIDOL 0.5 MG TAB PO SCH (09:30)
[2017-04-29] MEDS: LISINOPRIL 5 MG TAB PO SCH (09:30)
[2017-04-29] MEDS ORDERED: LISI-519 PO (13:50)
[2017-04-29] MEDS ORDERED: METH5 PO (13:50)
[2017-04-29] MEDS ORDERED: ESCI10TA PO (13:50)
[2017-04-29] MEDS ORDERED: HALO0.5T PO (13:50)
--- NOTE | 2017-04-30 08:42 | MD ---
cc: TERRANCE EM M.D. 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 Depressive disorder, unspecified. Marquez II: No diagnosis. Marquez III: No diagnosis. Marquez IV: Severity of psychosocial stressors moderate i.e. cognitive impairment, limited support system. 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 Depressive disorder, unspecified. Marquez II: No diagnosis. Marquez III: Right parietal occipital CVA, hypertension, goiter, status post biopsy, hyperthyroidism, hyperlipidemia, diastolic congestive heart failure, paroxysmal atrial fibrillation per history. Marquez IV: Severity of psychosocial stressors moderate i.e. cognitive impairment, limited support system. Marquez V: Current GAF score 55 BRIEF HISTORY: This 81-year-old white male was brought to the emergency room of this hospital under the Rust Act initiated by Dr. Michael Diaz, his primary care physician. It was reported that he has repeatedly getting "confused" and has been displaying erratic behavior, caused damage to the property. He was instructed not to drive but he did not follow through with this recommendation. Please refer to my initial evaluation for details. LABORATORY FINDINGS CBC with differential unremarkable. BUN slightly elevated at 21. Serum creatinine normal. Liver enzymes normal. Serum cholesterol normal. LDL 120, HDL 58, vitamin B12, folate levels normal. T4 1.67 slightly elevated. TSH 0.009 low. Vitamin D 39. Urine for drug screen negative. Serum salicylate and acetaminophen levels normal. Blood alcohol 3. PK negative. Routine urinalysis unremarkable. CT scan shows cortical atrophy, old infarct right parietal occipital region negative for any acute process. HOSPITAL COURSE When initially evaluated Mr. Kaufman was pleasant and cooperative though unhappy about being on the psychiatric unit. He believed that his neighbors were "jerks" and they were stealing his belongings especially his license plate. He maintained this paranoia during the first week of this hospital stay. It was also noted that he was experiencing moderate degree of underlying depression as well. There was also noticed that he was experiencing moderate degree of underlying depression as well. As such after further observation, assessment and input on the treatment team members, it was felt a trial of Haldol and Lexapro is indicated, and as such he was started on them. Initially he displayed psychomotor retardation, poor appetite, and social isolation. As his depression began to lift, his appetite improved significantly and he became more interactive with staff and peers. He began to come out of his room and associate with other patients in the day room. His paranoia also subsided. Throughout this hospital stay he did not exhibit any aggress or self-destructive behavior, nor did he make any threats of harm to self or others. His neighbor named Colton has been helping him with finances and other things around the house, however, Mr. Kaufman did not want him to be involved in this. As such, he was presented to the court and a guardian advocate was appointed for him. The Assistant County Attorney worked on discharge/placement needs. Mr. Kaufman did not wish to be placed in an assisted living facility or penitentiary. It was determined that he has enough funds and could hire a boat canvas installer [id number]. He will also be supervised by the home health care nurse. At the time of discharge he is denying any suicidal or homicidal ideations. He is not exhibiting any acute psychotic symptoms. During this hospital stay he was seen in medical consultation by Dr. Joon Jones. He started him on the antihypertensive as well as methimazole. He was considered medially stable for discharge. DISCHARGE MEDICATIONS: 1. Lexapro 10 milligrams p.o. daily #15, one refill. 2. Haldol 0.5 milligrams p.o. b.i.d. #30, one refill. 3. Lisinopril 5 milligrams p.o. daily #15. 4. Tapazole 5 milligrams p.o. q8 hours #20. He is recommended to continue outpatient psychiatric followup with [facility] and medical followup with his primary care physician, Dr. Michael Diaz. As mentioned he will be supervised by home health nurse and the care will be coordinated with the primary care physician and outpatient psychiatrist. MD LINDA Carlos/ZUNILDA /2:02 PM /8:41 AM
== END 2017-04-29 15:40 | disposition home health service (06) | DRG 884 ==
LOC: NEDAMB 16:21 → NEDA 04-19 17:45 → H250 04-19 18:10
PROVIDERS: ADMIT Psychiatry & Neurology Psychiatry; ATTEND Psychiatry & Neurology Psychiatry
DX: F03.90 Unspecified dementia, unspecified severity, without behavioral disturbance, psychotic disturbance, mood disturbance, and anxiety (principal); I50.32 Chronic diastolic (congestive) heart failure; I48.0 Paroxysmal atrial fibrillation; F32.9 Major depressive disorder, single episode, unspecified; H91.90 Unspecified hearing loss, unspecified ear; I12.9 Hypertensive chronic kidney disease with stage 1 through stage 4 chronic kidney disease, or unspecified chronic kidney disease; N18.3 Chronic kidney disease, stage 3 (moderate); H35.30 Unspecified macular degeneration; J30.9 Allergic rhinitis, unspecified; I70.0 Atherosclerosis of aorta; E78.5 Hyperlipidemia, unspecified; Z79.82 Long term (current) use of aspirin; E05.00 Thyrotoxicosis with diffuse goiter without thyrotoxic crisis or storm; E04.2 Nontoxic multinodular goiter; M41.9 Scoliosis, unspecified; I77.819 Aortic ectasia, unspecified site; Z86.73 Personal history of transient ischemic attack (TIA), and cerebral infarction without residual deficits
CPT/HCPCS: 70450; 80048; 80053; 80061; 80307; 81001; 82306; 82607; 82746; 83036; 84439; 84443; 85025; 85652; 86038; 93005; 99285

== ENCOUNTER 2017-08-03 11:36 | Emergency (ER) | payer MEDICARE, OTHER ==
[~2017-08-03] VITALS: Ht 170.2 cm; Wt 65.0 kg
[~2017-08-03 11:36] MED LIST changes: +ESCI10TA PO; +HALO0.5T PO; +LISI-519 PO; +METH5 PO
[2017-08-03 11:37] VITALS: BP 130/68; PULSE 88; RESP 24; TEMP 98.6; O2SAT 95
[2017-08-03] MEDS ORDERED: SODIUM CHLORID 0.9% 500 ML INJ 500 ML IV ONE ×2 (12:15→14:00)
[2017-08-03] MEDS ORDERED: SODIUM CHLORIDE 0.9% FLUSH 10 ML FLUSH IVF PRN (12:15)
--- NOTE | 2017-08-03 12:19 | PD ---
HPI Chief Complaint: Respiratory Symptoms Time Seen by Provider: 12:12 Travel History International Travel<30 days: No Contact w/Intl Traveler<30days: No Traveled to known affect area: No History of Present Illness HPI 82-year-old male with history of dementia, presents to the ER today brought in by his classroom aide because of several days history of poor by mouth intake, coughing, throat discomfort, shortness of breath. Patient is a poor historian, his neighbor has not noticed any vomiting, he has not complaining of fever or any other issues. His neighbor who is classroom aide states that he thinks that he is slowing down although patient's mental status is fairly baseline for him according to a neighbor. Modifying Factors: None Associated Signs & Symptoms: Coughing, throat discomfort, shortness of breath Risk Factors: Elderly, dementia PFSH Past Medical History Cancer: No Cardiovascular Problems: No Diabetes: No Diminished Hearing: No Endocrine: No Genitourinary: No Headaches: No Hepatitis: No Hiatal Hernia: No Hypertension: Yes Immune Disorder: No Musculoskeletal: No Neurologic: No Psychiatric: No Reproductive: No Respiratory: No Seizures: No Thyroid Disease: Yes (THYROID NODULES) Past Surgical History Abdominal Surgery: Yes (APPENDECTOMY) AICD: No Joint Replacement: No Pacemaker: No Other Surgery: Yes Social History Alcohol Use: No Tobacco Use: No Substance Use: No Allergies-Medications (Allergen,Severity, Reaction): Coded Allergies: No Known Allergies (Unverified , 04/19/17) Reported Meds & Prescriptions Reported Meds & Active Scripts Active Lisinopril 5 Mg Tab 5 Mg PO DAILY Haloperidol 0.5 Mg Tab 0.5 Mg PO BID Escitalopram (Escitalopram Oxalate) 10 Mg Tab 10 Mg PO DAILY Reported Eye Drops Relief (Tetrahydrozoline W/ Zinc Sulfa) Relief Cal 1 Drop EACH EYE BID Alice-Townsend Plus Cold (Chlorpheniramine-Phenylephrine) Pls Cold Tab 1 Tab PO DAILY Vitamin B12 (Cyanocobalamin) 1,000 Mcg Tab 2,000 Mcg PO DAILY Pyridoxine HCl 100 Mg Tab 100 Mg PO DAILY Preservision Areds (Multivitamins/Minerals) Areds Tab 2 Tab PO DAILY Multivitamin (Multivitamins) 1 Tab Tab 1 Tab PO DAILY Lovastatin 20 Mg Tab 20 Mg PO DAILY Diovan 320 mg (Valsartan) 320 Mg Tab 320 Mg PO DAILY Review of Systems ROS Limitations: Poor Historian Except as stated in HPI: all other systems reviewed are Neg Physical Exam Narrative GENERAL: Well-developed elderly white male patient currently in mild distress. Awake, lethargic, poor historian. SKIN: Focused skin assessment warm/dry. HEAD: Atraumatic. Normocephalic. EYES: Pupils equal and round. No scleral icterus. No injection or drainage. ENT: No nasal bleeding or discharge. Mucous membranes pink and moist. Notable for whitish posterior pharynx phlegm. No significant erythema. NECK: Trachea midline. No JVD. CARDIOVASCULAR: Regular rate and rhythm. No murmur appreciated. RESPIRATORY: No accessory muscle use. Decreased throughout. Breath sounds equal bilaterally. GASTROINTESTINAL: Abdomen soft, non-tender, nondistended. Hepatic and splenic margins not palpable. MUSCULOSKELETAL: No obvious deformities. No clubbing. No cyanosis. No edema. NEUROLOGICAL: Awake and alert. No obvious cranial nerve deficits. Motor grossly within normal limits. Normal speech. PSYCHIATRIC: Appropriate mood and affect; insight and judgment normal. Data Data Last Documented VS Vital Signs Date Time Temp Pulse Resp B/P (MAP) Pulse Ox O2 Delivery O2 Flow Rate FiO2 08/03/17 11:37 98.6 88 24 130/68 (88) 95 Room Air Orders Orders Complete Blood Count With Diff (08/03/17 12:13) Comprehensive Metabolic Panel (08/03/17 12:13) B-Type Natriuretic Peptide (08/03/17 12:13) Ckmb (Isoenzyme) Profile (08/03/17 12:13) Troponin I (08/03/17 12:13) Urinalysis - C+S If Indicated (08/03/17 12:13) Blood Culture (08/03/17 12:13) Iv Access Insert/Monitor (08/03/17 12:13) Electrocardiogram (08/03/17 12:13) Ecg Monitoring (08/03/17 12:13) Oximetry (08/03/17 12:13) Oxygen Administration (08/03/17 12:13) Chest, Single Ap (08/03/17 12:13) Sodium Chloride 0.9% Flush (Ns Flush) (08/03/17 12:15) Group A Rapid Strep Screen (08/03/17 12:13) Sodium Chlorid 0.9% 500 Ml Inj (Ns 500 M (08/03/17 12:15) Strep Culture (Group A) (08/03/17 12:50) CKMB (08/03/17 12:50) CKMB% (08/03/17 12:50) Sodium Chlorid 0.9% 500 Ml Inj (Ns 500 M (08/03/17 14:00) Cath For Specimen (08/03/17 14:05) Labs Laboratory Tests Test 08/03/17 12:50 08/03/17 14:10 White Blood Count 5.4 TH/MM3 Red Blood Count 4.37 MIL/MM3 Hemoglobin 14.6 GM/DL Hematocrit 43.8 % Mean Corpuscular Volume 100.2 FL Mean Corpuscular Hemoglobin 33.3 PG Mean Corpuscular Hemoglobin Concent 33.3 % Red Cell Distribution Width 15.5 % Platelet Count 193 TH/MM3 Mean Platelet Volume 8.9 FL Neutrophils (%) (Auto) 58.8 % Lymphocytes (%) (Auto) 25.8 % Monocytes (%) (Auto) 11.6 % Eosinophils (%) (Auto) 3.2 % Basophils (%) (Auto) 0.6 % Neutrophils # (Auto) 3.2 TH/MM3 Lymphocytes # (Auto) 1.4 TH/MM3 Monocytes # (Auto) 0.6 TH/MM3 Eosinophils # (Auto) 0.2 TH/MM3 Basophils # (Auto) 0.0 TH/MM3 CBC Comment DIFF FINAL Differential Comment Blood Urea Nitrogen 36 MG/DL Creatinine 1.45 MG/DL Random Glucose 93 MG/DL Total Protein 8.0 GM/DL Albumin 4.0 GM/DL Calcium Level 9.8 MG/DL Alkaline Phosphatase 78 U/L Aspartate Amino Transf (AST/SGOT) 30 U/L Alanine Aminotransferase (ALT/SGPT) 39 U/L Total Bilirubin 0.6 MG/DL Sodium Level 143 MEQ/L Potassium Level 4.5 MEQ/L Chloride Level 107 MEQ/L Carbon Dioxide Level 31.3 MEQ/L Anion Gap 5 MEQ/L Estimat Glomerular Filtration Rate 46 ML/MIN Total Creatine Kinase 187 U/L Creatine Kinase MB 3.4 NG/ML Troponin I 0.04 NG/ML B-Type Natriuretic Peptide 18 PG/ML Urine Color YELLOW Urine Turbidity CLEAR Urine pH 6.0 Urine Specific [place] 1.021 Urine Protein TRACE mg/dL Urine Glucose (UA) NEG mg/dL Urine Ketones 10 mg/dL Urine Occult Blood NEG Urine Nitrite NEG Urine Bilirubin NEG Urine Urobilinogen LESS THAN 2.0 MG/DL Urine Leukocyte Esterase NEG Urine RBC 1 /hpf Urine WBC 1 /hpf Urine Squamous Epithelial Cells <1 /hpf Urine Mucus FEW /lpf Microscopic Urinalysis Comment CATH-CULT NOT IND MDM Medical Decision Making Medical Screen Exam Complete: Yes Emergency Medical Condition: Yes Medical Record Reviewed: Yes Interpretation(s) Laboratory Tests Test 08/03/17 12:50 08/03/17 14:10 Red Blood Count 4.37 MIL/MM3 (4.50-5.90) Mean Corpuscular Volume 100.2 FL (80.0-100.0) Monocytes (%) (Auto) 11.6 % (0.0-8.0) Blood Urea Nitrogen 36 MG/DL (7-18) Creatinine 1.45 MG/DL (0.60-1.30) Estimat Glomerular Filtration Rate 46 ML/MIN (>89) Urine Ketones 10 mg/dL (NEG) Urine Mucus FEW /lpf (OCC) Last 24 hours Impressions Chest X-Ray 08/03/17 1213 Signed Impressions: Service Date/Time: Thursday, August 03, 2017 12:22 - CONCLUSION: 1. No acute abnormality is identified to explain the patient's cough. 2. Rightward deviation of the trachea. This is almost always secondary to an abnormally enlarged thyroid gland. However, other masses could give this appearance. 3. There is a 2 cm ossific density inferior to left coracoid process which could represent a loose body. Lucien Manley MD Differential Diagnosis Pharyngitis versus pneumonia versus sepsis versus dehydration versus bronchitis versus thrush Narrative Course Chest x-ray did not show any signs of pneumonia. However, there is a bit of a tracheal deviation, questionable chronic back and be checked out further with primary care doctor. Urine and the rest of lab work was unremarkable except for mildly elevated BUN and creatinine likely secondary to dehydration. Patient is able to drink coffee in the ER. Patient is getting fairly anxious and wants to leave, and at this point, his neighbor has talked to me and stated that if we are not planning on doing further studies, it may be paul for him to take the patient home. At this point, my plan would be to release the patient with follow-up to primary care doctor for further evaluation. Return for any worsening in symptoms as necessary. The plan has discussed with him and he states he will have the patient follow-up with primary care doctor this week. Diagnosis Primary Impression: Viral URI with cough Additional Impression: Tracheal deviation Disposition: 01 DISCHARGE HOME Condition: Stable Melissa Suarez MD Aug 03, 2017 12:19
--- NOTE | 2017-08-03 12:40 | RADRPT ---
EXAM DATE/TIME: 08/03/2017 12:22 [facility] COMPARISON: No previous studies available for comparison. INDICATIONS : Cough MEDICAL HISTORY : Dementia. Cardiovascular disease SURGICAL HISTORY : None. ENCOUNTER: Initial ACUITY: 1 day PAIN SCORE: 0/10 LOCATION: chest FINDINGS: 2 AP views of the chest demonstrate a normal-sized cardiac silhouette with tortuous descending thorac ic aorta. There is rightward deviation of the trachea. No effusion, consolidation, or pneumothorax is identified. Bones and soft tissues demonstrate no acute finding. There is an ossific density measuri ng 2 cm projecting inferior to left coracoid process. CONCLUSION: 1. No acute abnormality is identified to explain the patient's cough. 2. Rightward deviation of the trachea. This is almost always secondary to an abnormally enlarged thyr oid gland. However, other masses could give this appearance. 3. There is a 2 cm ossific density inferior to left coracoid process which could represent a loose severiano dy. Lucien Manley MD on August 03, 2017 at 12:37 Board Certified Radiologist. This report was verified electronically.
[2017-08-03 13:13] LABS: AUTOMATED NEUTROPHIL # 3.2 TH/MM3 (1.8-7.7); BASOPHIL % 0.6 % (0.0-2.0); EOSINOPHIL # 0.2 TH/MM3 (0-0.4); EOSINOPHIL % 3.2 % (0.0-4.0); HEMATOCRIT 43.8 % (39.0-51.0); HEMO FLAGS DIFF FINAL; LYMPH % 25.8 % (9.0-44.0); LYMPHOCYTE # 1.4 TH/MM3 (1.0-4.8); MEAN CELL VOLUME 100.2 FL (80.0-100.0); MEAN CORPUSCULAR HEMOGLOBIN 33.3 PG (27.0-34.0); MEAN CORPUSCULAR HGB CONC 33.3 % (32.0-36.0); MONO % 11.6 % (0.0-8.0); NEUT % 58.8 % (16.0-70.0); PLATELET COUNT 193 TH/MM3 (150-450); RED BLOOD COUNT 4.37 MIL/MM3 (4.50-5.90); RED CELL DISTRIBUTION WIDTH 15.5 % (11.6-17.2); WHITE BLOOD COUNT 5.4 TH/MM3 (4.0-11.0)
[2017-08-03 13:35] LABS: ALKALINE PHOSPHATASE 78 U/L (45-117); CREATINE KINASE 187 U/L (39-308); TOTAL BILIRUBIN ADULT 0.6 MG/DL (0.2-1.0)
[2017-08-03 13:38] LABS: ALT (GPT) 39 U/L (12-78); ANION GAP 5 MEQ/L (5-15); AST (GOT) 30 U/L (15-37); BICARBONATE 31.3 MEQ/L (21.0-32.0); BLOOD UREA NITROGEN 36 MG/DL (7-18); CHLORIDE 107 MEQ/L (98-107); GLOMERULAR FILTRATION RATE 46 ML/MIN (>89); POTASSIUM 4.5 MEQ/L (3.5-5.1); SODIUM (NA) 143 MEQ/L (136-145)
[2017-08-03 13:47] LABS: CKMB 3.4 NG/ML (0.5-3.6)
[2017-08-03 14:38] LABS: BLOOD, URINE NEG (NEG); GLUCOSE,URINE NEG (NEG); KETONE, URINE 10 mg/dL (NEG); MUCUS URINE FEW /lpf (OCC); NITRITE,URINE NEG (NEG); SQUAMOUS EPITHELIAL CELL URINE <1 /hpf (0-5); URINE COLOR YELLOW (YELLW/STRAW)
[2017-08-03 14:39] LABS: COMMENT (UR) CATH-CULT NOT IND; CULTURE IF INDICATED CATH CULTURE NOT IND
== END 2017-08-03 15:18 | disposition home or self-care (01) ==
LOC: NEPC 11:36
DX: J06.9 Acute upper respiratory infection, unspecified (principal); F03.90 Unspecified dementia, unspecified severity, without behavioral disturbance, psychotic disturbance, mood disturbance, and anxiety; R06.02 Shortness of breath; I10 Essential (primary) hypertension
CPT/HCPCS: 71010; 80053; 81001; 82550; 82552; 83880; 84484; 85025; 87040; 87081; 87880; 99285; J7040; P9612